=== PATIENT | female | born 1965 | race Caucasian/White ===

== ENCOUNTER 2017-09-16 20:28 | Emergency (ER) | payer OTHER ==
[~2017-09-16] VITALS: Ht 154.9 cm; Wt 67.8 kg
[2017-09-16 20:37] VITALS: BP 143/76
--- NOTE | 2017-09-16 20:37 | NUR ---
PT RETURNED TO LOBBY. URINE COLLECTED.
--- NOTE | 2017-09-16 20:52 | NUR ---
PT TO XRAY VIA W/C
--- NOTE | 2017-09-16 21:09 | NUR ---
AMBULATED TO ER BED 4
[2017-09-16 21:11] LABS: BASOPHILS # (AUTO) 0.3 K/uL (0.00-0.22); EOSINOPHILS # (AUTO) 0.1 K/uL (0-0.4); HEMATOCRIT 40.1 % (36-48); HEMOGLOBIN 13.7 g/dL (12.0-16.0); LYMPHOCYTES # (AUTO) 2.7 K/uL (2.5-16.5); MEAN CORPUSCULAR HEMOGLOBIN 31 pg (27-31); MEAN CORPUSCULAR HGB CONC 34 g/dL (33-37); MEAN CORPUSCULAR VOLUME 92 fL (80-94); MONOCYTES # (AUTO) 0.4 K/uL (0.8-1.0); NEUTROPHILS # (AUTO) 4.4 K/uL (1.8-7.7); PLATELET COUNT (AUTO) 302 K/uL (140-450); RED BLOOD CELL COUNT(AUTO) 4.38 MIL/uL (4.20-5.40); RED CELL DISTRIBUTION WIDTH 12.7 % (11.6-13.7); WHITE BLOOD COUNT (AUTO) 7.9 K/uL (4.8-10.8)
--- NOTE | 2017-09-16 21:15 | NUR ---
52 Y/O F W/C/O EPIGASTRIC PAIN WHICH RADIATES TO BACK. MED HX GALLBLADDER REMOVED.
--- NOTE | 2017-09-16 21:20 | NUR ---
ULTRASOUND AT BEDSIDE.
[2017-09-16 21:21] LABS: ANION GAP 14.2 (8-16); CARBON DIOXIDE 25.5 mmol/L (21-32); CREATININE 0.7 mg/dL (0.6-1.3); POTASSIUM 3.7 mmol/L (3.5-5.1)
[2017-09-16 21:27] LABS: ALBUMIN 3.7 g/dL (3.4-5.0); TOTAL BILIRUBIN 0.4 mg/dL (0.0-1.0)
[2017-09-16 22:34] LABS: APPEARANCE,URINE CLEAR (CLEAR); BILIRUBIN,URINE NEGATIVE (NEGATIVE); BLOOD, URINE 2+ (NEGATIVE); COLOR,URINE YELLOW (YELLOW); LEUKOCYTE ESTERASE ,URINE NEGATIVE (NEGATIVE); NITRITE, URINE NEGATIVE (NEGATIVE); UGLUCOSE NEGATIVE (NEGATIVE)
[2017-09-16 22:54] LABS: RBC,URINE 3-10 (FEW) /HPF (0-5); WBC,URINE 0-5 (RARE) /HPF (0-5)
[2017-09-16 23:13] VITALS: BP 137/77
--- NOTE | 2017-09-16 23:13 | NUR ---
Patient discharged with v/s stable. Written and verbal after care instructions given and explained. Patient alert, oriented and verbalized understanding of instructions. Ambulatory with steady gait. All questions addressed prior to discharge. ID band removed. Patient advised to follow up with PMD. Rx of SIMETHICONE AND MIRALAX given. Patient educated on indication of medication including possible reaction and side effects. Opportunity to ask questions provided and answered.
== END 2017-09-16 23:13 | disposition home or self-care (01) ==
LOC: MED 20:28
DX: K59.00 Constipation, unspecified (principal); K21.9 Gastro-esophageal reflux disease without esophagitis; Z90.49 Acquired absence of other specified parts of digestive tract
CPT/HCPCS: 36415; 74176; 76705; 80053; 81001; 81025; 83690; 85025; 87086; 99285; Q0092

== ENCOUNTER 2018-03-22 16:57 | Emergency (ER) | payer OTHER ==
[~2018-03-22] VITALS: Ht 154.9 cm; Wt 65.8 kg
[2018-03-22 17:32] VITALS: BP 133/86
--- NOTE | 2018-03-22 17:37 | NUR ---
PT WHEEL CHAIR ASSISTED BACK TO THE LOBBY
--- NOTE | 2018-03-22 18:29 | NUR ---
pt asssited to room 11
--- NOTE | 2018-03-22 18:33 | NUR ---
52Y/F BIB SELF C/O LOWER BACK PAIN. PT STATES " SHE WAS CROSSING HER LEFT LEG OVER HER RIGHT LEG TO CLEAN HER FOOT, WHEN SHE MOVE HER FOOT BACK, SHE FELT A SHARP BACK PAIN X 4 DAYS WORSE TODAY WITH DIFFICULTY SITTING; DENIES INJURY. PT TOOK ADVIL AT 0700 THIS MORNING WITH NO RELIEVE OF PAIN. PT DENIES N/V/D; SKIN IS PINK/WARM/DRY; AAOX4 WITH EVEN AND STEADY GAIT; LUNGS CLEAR BL; HR EVEN AND REGULAR; PT DENIES ANY FEVER, CP, SOB, OR COUGH AT THIS TIME; PATIENT STATES PAIN OF 10/10 AT THIS TIME; VSS; PATIENT POSITIONED FOR COMFORT; HOB ELEVATED; BEDRAILS UP X1; BED DOWN. ER MD MADE AWARE OF PT STATUS. HX; HTN RX;" CAN'T REMEMBER"
[2018-03-22] MEDS ORDERED: KETOROLAC 60 MG/2 ML VIAL IM ONE (18:35)
--- NOTE | 2018-03-22 19:20 | NUR ---
RECEIVED REPORT FROM AM NURSE. PT RESTING COMFORTABLY, RR EVEN AND UNLABORED. PT REPORTS DECREASED PAIN. ALL NEEDS MET.
--- NOTE | 2018-03-22 20:00 | NUR ---
CT CALLED, MADE CT AWARE THAT PT REFUSED TO GIVE URINE SAMPLE, PT STATING THAT THERE IS NO CHANCE THAT SHE IS , WILLING TO SIGN CONSENT FOR CT. CT TO MOUNTER AUTOMATIC PT.
--- NOTE | 2018-03-22 20:38 | NUR ---
PT BACK FROM CT
--- NOTE | 2018-03-22 21:30 | NUR ---
PT RESTING COMFORTABLY IN BED, PT REPORTS TOLERABLE 5/10 LOWER BACK PAIN AT THIS TIME, RR EVEN AND UNLABORED, SNACKS PROVIDED, ALL NEEDS MET AT THIS TIME.
--- NOTE | 2018-03-22 23:30 | NUR ---
DR MEHTA AT BEDSIDE TO SPEAK WITH PT.
[2018-03-22] MEDS ORDERED: DEXAMETHASONE 10 MG/ML VIAL IM ONE (23:40)
--- NOTE | 2018-03-22 23:41 | NUR ---
PT RESTING COMFORTABLY IN BED, PT REPORTS 3/10 PAIN, VSS, ALL NEEDS MET AT THIS TIME.
[2018-03-23 00:17] VITALS: BP 137/76
--- NOTE | 2018-03-23 00:18 | NUR ---
Patient discharged with v/s stable. Written and verbal after care instructions given and explained. Patient alert, oriented and verbalized understanding of instructions. Ambulatory with steady gait. All questions addressed prior to discharge. ID band removed. Patient advised to follow up with PMD. Rx of NORCO, FLEXERIL, IBUPROFEN given. Patient educated on indication of medication including possible reaction and side effects. Opportunity to ask questions provided and answered.
== END 2018-03-23 00:18 | disposition home or self-care (01) ==
LOC: MED 16:57
DX: M51.26 Other intervertebral disc displacement, lumbar region (principal); M19.90 Unspecified osteoarthritis, unspecified site; K21.9 Gastro-esophageal reflux disease without esophagitis; I10 Essential (primary) hypertension
CPT/HCPCS: 72131; 96372; 99284; J1100; J1885

== ENCOUNTER 2019-04-22 18:07 | Emergency (ER) | payer OTHER ==
[~2019-04-22] VITALS: Ht 154.9 cm; Wt 67.1 kg
[2019-04-22 18:39] VITALS: BP 144/75
--- NOTE | 2019-04-22 19:43 | NUR ---
PT AMBULATED TO BED
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
[2019-04-22] MEDS ORDERED: SILVER SULFADIAZINE 1% 50 GM JAR TP ONE (20:40)
--- NOTE | 2019-04-22 20:45 | NUR ---
BURN AREA, CLEANSE WITH NSS, APPLIED SILVER CREAM AND COVER WITH DRY DRESSING, PT TOLERATED WELL
--- NOTE | 2019-04-22 21:03 | NUR ---
Patient discharged with v/s stable. Written and verbal after care instructions given and explained. Patient alert, oriented and verbalized understanding of instructions. Ambulatory with steady gait. All questions addressed prior to discharge. ID band removed. Patient advised to follow up with PMD. Rx of BACTRIM DS, BACITRACXIN OINTMENT given. Patient educated on indication of medication including possible reaction and side effects. Opportunity to ask questions provided and answered.
[2019-04-22 21:04] VITALS: BP 169/72
== END 2019-04-22 21:03 | disposition home or self-care (01) ==
LOC: MED 18:07
DX: T22.211A Burn of second degree of right forearm, initial encounter (principal); K21.9 Gastro-esophageal reflux disease without esophagitis; I10 Essential (primary) hypertension; X12.XXXA Contact with other hot fluids, initial encounter; Y93.G3 Activity, cooking and baking; Y92.89 Other specified places as the place of occurrence of the external cause; Y99.8 Other external cause status
CPT/HCPCS: 16020; 99284

== ENCOUNTER 2019-04-27 18:13 | Emergency (ER) | payer OTHER ==
[~2019-04-27] VITALS: Ht 154.9 cm; Wt 67.6 kg
[2019-04-27 18:33] VITALS: BP 109/61
--- NOTE | 2019-04-27 19:12 | NUR ---
PATIENT AMBULATED TO ER BED 8
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
[2019-04-27] MEDS ORDERED: BACITRACIN OINT 500 UNITS/GM PKT TP ONE (21:15)
--- NOTE | 2019-04-27 21:35 | NUR ---
NEOSPORIN APPLIED TO BURN SITE AND COVERED WITH GAUZE.
--- NOTE | 2019-04-27 21:38 | NUR ---
CONSENT FORM SIGNED FOR TDAP VACCINE. REVIEWED RISKS/BENEFITS. PT VERBALIZES UNDERSTANDING.
[2019-04-27] MEDS ORDERED: NEOMYCIN/POLYMYXIN/BACITRACIN 0.9 GM/1 PKT TP ONE (21:44)
[2019-04-27 21:45] VITALS: BP 113/72
--- NOTE | 2019-04-27 21:45 | NUR ---
Patient discharged with v/s stable. Written and verbal after care instructions given and explained. Patient verbalized understanding. Ambulatory with steady gait. All questions addressed prior to discharge. Advised to follow up with PMD.
== END 2019-04-27 21:45 | disposition home or self-care (01) ==
LOC: MED 18:13
DX: T23.071A Burn of unspecified degree of right wrist, initial encounter (principal); T23.021A Burn of unspecified degree of single right finger (nail) except thumb, initial encounter; K21.9 Gastro-esophageal reflux disease without esophagitis; I10 Essential (primary) hypertension; X11.8XXA Contact with other hot tap-water, initial encounter; Y93.89 Activity, other specified; Y92.89 Other specified places as the place of occurrence of the external cause; Y99.8 Other external cause status
CPT/HCPCS: 16020; 90471; 90715; 99284

== ENCOUNTER 2019-08-30 16:05 | Emergency (ER) | payer OTHER ==
[~2019-08-30] VITALS: Ht 154.9 cm; Wt 65.3 kg
[2019-08-30 16:12] VITALS: BP 147/76
[2019-08-30] MEDS ORDERED: DEXAMETHASONE 10 MG/ML VIAL IM ONE (16:20)
[2019-08-30] MEDS ORDERED: KETOROLAC 30 MG/ML VIAL IM ONE (16:20)
--- NOTE | 2019-08-30 16:20 | NUR ---
54 Y/O F C/O LEFT WRIST PAIN X 2 MONTHS. PT DENIES INJURY, STATES THE PAIN CAME ON SUDDENLY AND HAS LASTED FOR 2 MONTHS. PT HAS PAIN WITH MOVEMENT OF THUMB, HOLDING OBJECTS 8/10. PAIN DOES NOT RADIATE FROM WRIST TO ARM. PT IS WEARING A SPLINT THAT SHE STATES HELPS WITH THE PAIN RELIEF. PT POSITIONED FOR COMFORT, SIDE RAIL X1 IN PLACE. NKA.
--- NOTE | 2019-08-30 16:21 | NUR ---
PATIENT AMBULATED TO BED 3
[2019-08-30 17:43] VITALS: BP 136/81
--- NOTE | 2019-08-30 17:44 | NUR ---
Patient discharged with v/s stable. Written and verbal after care instructions given and explained. Patient alert, oriented and verbalized understanding of instructions. Ambulatory with steady gait. All questions addressed prior to discharge. ID band removed. Patient advised to follow up with PMD. Rx of NORCO/NAPROXEN given. Patient educated on indication of medication including possible reaction and side effects. Opportunity to ask questions provided and answered.
== END 2019-08-30 18:10 | disposition home or self-care (01) ==
LOC: MED 16:05
DX: M65.4 Radial styloid tenosynovitis [de Quervain] (principal); K21.9 Gastro-esophageal reflux disease without esophagitis; I10 Essential (primary) hypertension; F17.210 Nicotine dependence, cigarettes, uncomplicated; Z90.49 Acquired absence of other specified parts of digestive tract
CPT/HCPCS: 96372; 99283; J1100; J1885

== ENCOUNTER 2020-12-13 14:25 | Emergency (ER) | payer OTHER ==
[~2020-12-13] VITALS: Ht 154.9 cm; Wt 66.2 kg
[2020-12-13 14:33] VITALS: BP 165/73
--- NOTE | 2020-12-13 15:11 | NUR ---
PATIENT PRESENTS TO ED WITH PALPITATION . PT STATES SYMPTOM STARTED LAST NIGHT @ 2AM . DENIES N/V/D; SKIN IS PINK/WARM/DRY; AAOX4 WITH EVEN AND STEADY GAIT; LUNGS CLEAR BL; HR EVEN AND REGULAR; PT DENIES ANY FEVER, CP, SOB, OR COUGH AT THIS TIME; PATIENT STATES PAIN OF 0/10 AT THIS TIME; VSS; PATIENT POSITIONED FOR COMFORT; HOB ELEVATED; BEDRAILS UP X2; BED DOWN. ER MD MADE AWARE OF PT STATUS. PMH: HTN, RX: LISINOOPRIL, CHLORTHALIALONE, NAPROXEN, ALDRONATE, AMEPRAZOLE, VITAMIN D, LIPITOR. NKA
[2020-12-13 15:13] LABS: BASOPHILS # (AUTO) 0.1 K/uL (0.00-0.22); BASOPHILS % (AUTO) 0.7 % (0.0-2.0); EOSINOPHILS % (AUTO) 0.3 % (0.0-4.0); HEMATOCRIT 37.6 % (36-48); HEMOGLOBIN 13.2 g/dL (12.0-16.0); LYMPHOCYTES # (AUTO) 2.1 K/uL (2.5-16.5); LYMPHOCYTES % (AUTO) 21.1 % (20.5-51.1); MEAN CORPUSCULAR HEMOGLOBIN 31 pg (27-31); MEAN CORPUSCULAR HGB CONC 35 g/dL (33-37); MEAN CORPUSCULAR VOLUME 89.5 fL (80-94); MONOCYTES # (AUTO) 0.7 K/uL (0.8-1.0); MONOCYTES % (AUTO) 6.9 % (1.7-9.3); NEUTROPHILS # (AUTO) 7.2 K/uL (1.8-7.7); PLATELET COUNT (AUTO) 187 K/uL (140-450); RED CELL DISTRIBUTION WIDTH 13.5 % (11.6-13.7); WHITE BLOOD COUNT (AUTO) 10.1 K/uL (4.8-10.8)
[2020-12-13 15:30] LABS: ALBUMIN 3.4 g/dL (3.4-5.0); ANION GAP 14.3 (8-16); CARBON DIOXIDE 25.9 mmol/L (21-32); CREATININE 1.2 mg/dL (0.6-1.3); POTASSIUM 3.2 mmol/L (3.5-5.1); TOTAL BILIRUBIN 0.8 mg/dL (0.0-1.0)
[2020-12-13] MEDS ORDERED: NACL 0.9% 1,000 ML IV ONE (16:00)
[2020-12-13] MEDS ORDERED: metFORMIN 500 MG TAB PO SCH (17:20)
[2020-12-13] MEDS ORDERED: METF500T PO (17:27)
--- NOTE | 2020-12-13 17:48 | NUR ---
Patient discharged with v/s stable. Written and verbal after care instructions given and explained. Patient alert, oriented and verbalized understanding of instructions. Ambulatory with steady gait. All questions addressed prior to discharge. ID band removed. Patient advised to follow up with PMD. Rx of METFORMIN given. Patient educated on indication of medication including possible reaction and side effects. Opportunity to ask questions provided and answered.
[2020-12-13 17:51] VITALS: BP 140/57
== END 2020-12-13 17:48 | disposition home or self-care (01) ==
LOC: MED 14:25
DX: E11.9 Type 2 diabetes mellitus without complications (principal); F41.9 Anxiety disorder, unspecified; I11.9 Hypertensive heart disease without heart failure; E78.00 Pure hypercholesterolemia, unspecified; Z79.84 Long term (current) use of oral hypoglycemic drugs
CPT/HCPCS: 36415; 80053; 81002; 85025; 93005; 96360; 99284; J7030

== ENCOUNTER 2022-05-26 18:59 | Emergency (ER) | payer OTHER ==
[~2022-05-26] VITALS: Ht 154.9 cm; Wt 65.3 kg
[~2022-05-26 18:59] MED LIST: METF-346 PO
[2022-05-26 19:32] VITALS: BP 214/109
--- NOTE | 2022-05-26 19:35 | NUR ---
Chandni garner in [facility] - 05/26/22 at 1940 by [facility] PT TO .
--- NOTE | 2022-05-26 19:39 | NUR ---
Chandni garner in [facility] - 05/26/22 at 1940 by JERAMIE PATIENT RQ CAMILLA SANCHEZ
[2022-05-26 20:19] VITALS: BP 137/62
--- NOTE | 2022-05-26 20:23 | NUR ---
PT TO LOBBY.
[2022-05-26 22:26] LABS: APPEARANCE,URINE CLEAR (CLEAR); BILIRUBIN,URINE NEGATIVE (NEGATIVE); BLOOD, URINE 1+ (NEGATIVE); COLOR,URINE YELLOW (YELLOW); LEUKOCYTE ESTERASE ,URINE NEGATIVE (NEGATIVE); NITRITE, URINE NEGATIVE (NEGATIVE); UGLUCOSE NEGATIVE (NEGATIVE)
[2022-05-26 22:37] LABS: BASOPHILS % (AUTO) 1.3 % (0.0-2.0); EOSINOPHILS % (AUTO) 0.7 % (0.0-4.0); HEMATOCRIT 33.5 % (36-48); HEMOGLOBIN 11.8 g/dL (12.0-16.0); LYMPHOCYTES # (AUTO) 1.6 K/uL (2.5-16.5); LYMPHOCYTES % (AUTO) 55.9 % (20.5-51.1); MEAN CORPUSCULAR HEMOGLOBIN 32 pg (27-31); MEAN CORPUSCULAR HGB CONC 35 g/dL (33-37); MEAN CORPUSCULAR VOLUME 91.8 fL (80-94); MONOCYTES # (AUTO) 0.1 K/uL (0.8-1.0); MONOCYTES % (AUTO) 4.1 % (1.7-9.3); NEUTROPHILS # (AUTO) 1.1 K/uL (1.8-7.7); PLATELET COUNT (AUTO) 348 K/uL (140-450); RED BLOOD CELL COUNT(AUTO) 3.65 MIL/uL (4.20-5.40); RED CELL DISTRIBUTION WIDTH 15.2 % (11.6-13.7); WHITE BLOOD COUNT (AUTO) 2.9 K/uL (4.8-10.8)
[2022-05-26 22:38] LABS: RBC,URINE 0-5 /HPF (0-5); WBC,URINE 0-5 /HPF (0-5)
[2022-05-26 22:57] LABS: ALBUMIN 3.9 g/dL (3.4-5.0); ANION GAP 17.6 (8-16); CARBON DIOXIDE 24.5 mmol/L (21-32); CREATININE 0.8 mg/dL (0.6-1.3); POTASSIUM 3.1 mmol/L (3.5-5.1); TOTAL BILIRUBIN 1.3 mg/dL (0.0-1.0)
--- NOTE | 2022-05-26 23:01 | NUR ---
MARLEE DIMAS ASSESSING IN [facility]
[2022-05-26] MEDS ORDERED: NACL 0.9% 1,000 ML IV ONE (23:05)
[2022-05-26] MEDS ORDERED: MORPHINE SULFATE 4 MG/ML SYR IVP ONE (23:05)
[2022-05-26] MEDS ORDERED: cefTRIAXone 1,000 MG VIAL ONE (23:56)
[2022-05-27] MEDS ORDERED: ACET-8386 PO (06:45)
[2022-05-27] MEDS ORDERED: FAMO-92 PO (06:45)
[2022-05-27] MEDS ORDERED: AMOX1TAB8 PO (06:45)
[2022-05-27] MEDS ORDERED: ONDA-188 PO (06:45)
[2022-05-27] MEDS ORDERED: SIME125T38 PO (06:45)
[2022-05-27 07:06] VITALS: BP 112/44
== END 2022-05-27 07:05 | disposition home or self-care (01) ==
LOC: MED 18:59
DX: K52.9 Noninfective gastroenteritis and colitis, unspecified (principal); E11.9 Type 2 diabetes mellitus without complications; I10 Essential (primary) hypertension; Z85.3 Personal history of malignant neoplasm of breast; Z98.890 Other specified postprocedural states; Z79.84 Long term (current) use of oral hypoglycemic drugs; Z79.899 Other long term (current) drug therapy
CPT/HCPCS: 36415; 71250; 74176; 80053; 81001; 81025; 83605; 83690; 85025; 87086; 96365; 96366; 96375; 99284; J0696; J2270; J7030

== ENCOUNTER 2022-06-17 11:57 | Inpatient (IN) | payer OTHER ==
[~2022-06-17] VITALS: Ht 154.9 cm; Wt 67.6 kg
[~2022-06-17 11:57] MED LIST changes: +ACET-8386 PO; +AMOX1TAB8 PO; +FAMO-92 PO; +ONDA-188 PO; +SIME125T38 PO
[2022-06-17 12:10] VITALS: BP 109/61
[2022-06-17] MEDS ORDERED: NACL 0.9% 1,000 ML IV SCH (12:45)
--- NOTE | 2022-06-17 12:51 | NUR ---
Pt moved to bed 01 via [facility].
--- NOTE | 2022-06-17 13:00 | NUR ---
56 y/o F BIB self from home c/o low back pain, dizziness, lightheadedness, sore throat, body aches x 2-3 days. Patient A&Ox4, ambulatory, states referred by OFFICE PROFESSIONAL for abnormal labs "WBC 1.7." Patient reports last chemotherapy treatment on 06/11/22; reports next scheduled treatment tomorrow, however, OFFICE PROFESSIONAL notified pt of abnormal labs and advised ER evaluation. Pt states 2/10, pulsating/constant, non-radiating pain. Denies fever, chills, dysuria, SOB, cold-like symptoms, fever, headache, chest pain, abdominal pain. Pt placed onto monitoring tech and N95 provided. Bed locked in lowest position, side rails x 1. PMH: breast cancer 2020, double mastectomy lymph nodes removed on left) DM, HTN, HLD, osteoporosis Meds: metformin, lisinopril, chlorthalidone, vitamin D, atorvastatin, alendronate NKDA
--- NOTE | 2022-06-17 13:00 | NUR ---
Note undone in EDM - 06/17/22 at 1432 by [facility] 56 y/o F BIB self from home c/o low back pain, dizziness, lightheadedness, sore throat, body aches x 2-3 days. Patient A&Ox4, ambulatory, states referred by ADMINISTRATIVE SERVICES SPECIALIST for abnormal labs "WBC 1.7." Patient reports last chemotherapy treatment on 06/11/22; reports next scheduled treatment tomorrow, however, ADMINISTRATIVE SERVICES SPECIALIST notified pt of abnormal labs and advised ER evaluation. Pt states 2/10, pulsating/constant, non-radiating pain. Denies fever, chills, dysuria, SOB, cold-like symptoms, fever, headache, chest pain, abdominal pain. Pt placed onto ekg monitor tech and N95 provided. Bed locked in lowest position, side rails x 1. PMH: breast cancer 2020, double mastectomy lymph nodes removed on left) DM, HTN, HLD, osteoporosis Meds: metformin NKDA
--- NOTE | 2022-06-17 13:10 | NUR ---
Lab at bedside
--- NOTE | 2022-06-17 13:36 | NUR ---
UMA SENT TO LAB
[2022-06-17 13:45] LABS: ALBUMIN 3.4 g/dL (3.4-5.0); ANION GAP 15.5 (8-16); CARBON DIOXIDE 24.7 mmol/L (21-32); CREATININE 0.8 mg/dL (0.6-1.3); HEMATOCRIT 30.2 % (36-48); HEMOGLOBIN 10.5 g/dL (12.0-16.0); MEAN CORPUSCULAR HEMOGLOBIN 33 pg (27-31); MEAN CORPUSCULAR HGB CONC 35 g/dL (33-37); MEAN CORPUSCULAR VOLUME 93.7 fL (80-94); PLATELET COUNT (AUTO) 325 K/uL (140-450); POTASSIUM 3.2 mmol/L (3.5-5.1); RED BLOOD CELL COUNT(AUTO) 3.23 MIL/uL (4.20-5.40); TOTAL BILIRUBIN 0.6 mg/dL (0.0-1.0); WHITE BLOOD COUNT (AUTO) 2.8 K/uL (4.8-10.8)
[2022-06-17 13:49] LABS: PROTHROMBIN TIME 10.2 secs (10.8-13.4)
[2022-06-17 14:32] LABS: BASOPHILS % (MANUAL) 1 % (0-2); EOSINOPHILS % (MANUAL) 1 % (0-4); MONOCYTES % (MANUAL) 14 % (5-12); MYELOCYTES % 2 % (0-0)
[2022-06-17] MEDS ORDERED: ATOR40TA PO (14:32)
[2022-06-17] MEDS ORDERED: CHOL500014 PO (14:32)
[2022-06-17] MEDS ORDERED: FOS70 PO (14:32)
[2022-06-17] MEDS ORDERED: LISI-487 PO (14:32)
[2022-06-17] MEDS ORDERED: CHLO25TA33 PO (14:32)
--- NOTE | 2022-06-17 14:35 | NUR ---
Patient resting in low-fowlers in position of comfort. screening representative in place with VSS. Pt states low back pain remains 10/03. Call light at bedside.
[2022-06-17 14:38] LABS: LYMPHOCYTES % (MANUAL) 46 % (20-46)
[2022-06-17] MEDS ORDERED: OSELTAMIVIR PHOSPHATE 75 MG CAP PO ONE (14:50)
[2022-06-17] MEDS ORDERED: INSULIN LISPRO SLIDING SCALE 100 UNITS/ML VIAL SUBQ PRN (14:55)
[2022-06-17] MEDS ORDERED: DEXTROSE 50% 50 ML SYR IVP PRN (14:55)
[2022-06-17] MEDS ORDERED: ONDANSETRON 4 MG/2 ML VIAL IVP PRN (14:55)
--- NOTE | 2022-06-17 14:59 | NUR ---
Dr. Barraza with page back, advised of critical lab value + FLU A.
--- NOTE | 2022-06-17 15:06 | NUR ---
Dr. Barraza at bedside
[2022-06-17] MEDS ORDERED: FILGRASTIM-TBO 300 MCG/0.5 ML SYRINGE SUBQ SCH (15:30)
[2022-06-17] MEDS: NACL 0.9% 1,000 ML IV SCH (15:46)
[2022-06-17] MEDS: BLOOD GLUCOSE MONITORING 1 DEV DEV FS SCH ×2 (17:00→20:53)
--- NOTE | 2022-06-17 17:55 | NUR ---
Pt transferred to Tele 118 via BED WITH ELIDA RENDON.
--- NOTE | 2022-06-17 18:05 | NUR ---
Patient will be admitted to care of Dr. Barraza. Admited to Telemetry. Will go to room 118A. Belongings list completed. Report to ELIDA Jones.
--- NOTE | 2022-06-17 18:40 | NUR ---
RECEIVED PT VIA GODWAINEY FROM ED ACCOMPANIED BY ELIDA RENDON PT A/OX4 AMBULATORY ABLE TO MAKE NEEDS KNOWN PLACED ON TELEMETRY SR NOTED VS 98.2 112/50 98% ON ROOM AIR HR 78 RR 17 NO ACUTE DISTRESS NOTED ORIENTED TO ROOM IV FLUIDS PLACED ON PUMP TO RUN AT 75ML/HR ORDERED MRSA SWAB COMPLETED PLACED NEUTROPENIC PRECAUTIONS SIGN AT DOOR NO DISTRESS NOTED WILL ENDORSE CARE TO ONCOMING RN FOR ADMISSION Addendum: 06/17/22 at 1846 by Agency Nurse 21, RN RN PT WBC 2.8 NO NEUTROPENIC PRECATIONS PT PLACED ON CONTACT PRECAUTIONS FOR INFLUENZA A WILL ENDORSE TO ONCOMING RN FOR ADMISSION ASSESSMENT
[2022-06-17 19:30] VITALS: BP 112/50
--- NOTE | 2022-06-17 19:30 | NUR ---
RECEIVED REPORT FROM DAY SHIFT NURSE MICHELLE FOR CONTINUITY OF CARE. PATIENT IS A&O X4. PATIENT IS ON ROOM AIR, BREATHING IS NORMAL WITH SYMMETRICAL RISE AND FALL OF CHEST. PATIENT'S IV IS 20G IN THE RIGHT HAND, RUNNING NS AT 75. PATIENT IS SITTING UP IN BED WATCHING TV. WILL CONTINUE TO OBSERVE PATIENT.
[2022-06-17] MEDS: OSELTAMIVIR PHOSPHATE 75 MG CAP PO SCH (20:46)
--- NOTE | 2022-06-17 21:00 | NUR ---
ADMINISTERED 2100 MEDICATION TO PATIENT; MEDICATION ADMINISTERED SUCCESSFULLY, PATIENT WAS ABLE TO SWALLOW WITHOUT ANY ISSUES. BS WAS OBTAINED, BS WAS 118, NO INSULIN COVERAGE NEEDED. PATIENT'S BREATHING IS NORMAL WITH SYMMETRICAL RISE AND FALL OF CHEST. IV IS RUNNING NS AT 75. PATIENT IS SITTING UP IN BED WATCHING TV. WILL CONTINUE TO OBSERVE PATIENT.
[2022-06-17] MEDS: ACETAMINOPHEN 325 MG TAB PO PRN (22:09)
--- NOTE | 2022-06-17 22:15 | NUR ---
PATIENT COMPLAINED OF PAIN IN LOWER BACK. CHECKED PATIENT'S CHART, TYLENOL WAS APPROPRIATE TO ADMINISTER. ADMINISTERED TYLENOL TO PATIENT. MEDICATION ADMINISTERED SUCCESSFULLY, PATIENT WAS ABLE TO SWALLOW WITHOUT ANY DIFFICULTY. WILL REASSESS PATIENT'S PAIN IN ONE HOUR.
--- NOTE | 2022-06-17 23:15 | NUR ---
LOOKED IN ON PATIENT TO REASSESS PAIN. PATIENT WAS SLEEPING, LYING ON HER RIGHT SIDE. BREATHING WAS NORMAL WITH SYMMETRICAL RISE AND FALL OF CHEST. MEDICATION WAS SUCCESSFUL IN PROVIDING COMFORT TO PATIENT. WILL CONTINUE TO OBSERVE PATIENT.
[2022-06-18] VITALS: BP 105/45
--- NOTE | 2022-06-18 01:00 | NUR ---
LOOKED IN ON PATIENT. PATIENT WAS SLEEPING, LYING ON HER RIGHT SIDE. BREATHING WAS NORMAL WITH SYMMETRICAL RISE AND FALL OF CHEST. IV WAS STILL RUNNING NS AT 75. BED IS IN LOWEST POSITION WITH WHEELS LOCKED AND CALL LIGHT IN PLACE. WILL CONTINUE TO OBSERVE PATIENT.
--- NOTE | 2022-06-18 03:02 | NUR ---
LOOKED IN ON PATIENT. PATIENT WAS SLEEPING; PATIENT ROLLED OVER AFTER I OPENED THE DOOR, ROTATING FROM LYING ON HER LEFT SIDE TO LYING ON HER RIGHT SIDE, BUT STILL ASLEEP. IV WAS RUNNING NS AT 75. BREATHING WAS NORMAL WITH SYMMETRICAL RISE AND FALL OF CHEST. WILL CONTINUE TO OBSERVE PATIENT.
[2022-06-18 04:00] VITALS: BP 101/43
--- NOTE | 2022-06-18 04:00 | NUR ---
OBTAINED PATIENT'S 0400 VITALS. VITALS WERE: BP 101/43, HR 78, O2 98, RR 17, TEMP 97.0. WILL CONTINUE TO OBSERVE PATIENT.
[2022-06-18] MEDS: NACL 0.9% 1,000 ML IV SCH ×2 (04:15→05:17)
--- NOTE | 2022-06-18 05:18 | NUR ---
WENT INTO PATIENT'S ROOM AND HUNG NEW IV BAG OF NS. NS IS RUNNING AT 75. PATIENT WAS SLEEPING, BUT AWAKENED WHEN I ENTERED THE ROOM. INFORMED PATIENT I WAS HANGING A NEW IV BAG, PATIENT STATED OKAY. PATIENT WAS GOING TO GO BACK TO SLEEP. BREATHING WAS NORMAL WITH SYMMETRICAL RISE AND FALL OF CHEST. WILL CONTINUE TO OBSERVE PATIENT.
[2022-06-18] MEDS: BLOOD GLUCOSE MONITORING 1 DEV DEV FS SCH ×2 (07:02→12:24)
--- NOTE | 2022-06-18 07:02 | NUR ---
BS WAS OBTAINED. BS WAS 111, NO INSULIN NEEDED. PATIENT WAS AWAKE, BREATHING WAS NORMAL WITH SYMMETRICAL RISE AND FALL OF CHEST. WILL ENDORSE CARE TO DAY SHIFT NURSE.
--- NOTE | 2022-06-18 07:30 | NUR ---
ENDORSED TO DAY SHIFT ANTOLIN FOR CONTINUITY OF CARE. PATIENT IS STABLE.
--- NOTE | 2022-06-18 07:31 | NUR ---
RECEIVED PT FROM REPORTS ANALYSIS MANAGER FOR CONTINUITY OF CARE.
[2022-06-18 08:00] VITALS: BP 112/55
--- NOTE | 2022-06-18 08:00 | NUR ---
ENDORSED PT TO ELIDA ESCALANTE FOR CONTINUITY OF CARE. LEFT MESSAGE TO DR GONZALEZ REGARDING POTASSIUM 3.[address] AND NO ORDER IN PLACE. WAITING FOR RESPONSE.
--- NOTE | 2022-06-18 08:01 | NUR ---
RECEIVED REPORT FROM AM SHIFT NURSE D/T CHANGE OF ASSIGNMENTS. PATIENT LYING DOWN IN BED, AAOX4, SKIN INTACT, IV SITE INTACT, PATENT, AND INFUSING IVF PER MD ORDERS. REVIEWED PLAN OF CARE WITH PATIENT. SAFETY MEASURES IN PLACE, CALL LIGHT WITHIN REACH. WILL CONTINUE TO MONITOR.
[2022-06-18] MEDS ORDERED: POTASSIUM CHLORIDE 10 MEQ TABER PO SCH (09:00)
[2022-06-18] MEDS ORDERED: PANTOPRAZOLE 40 MG TABEC PO SCH (09:00)
[2022-06-18] MEDS ORDERED: ENOXAPARIN 40 MG/0.4 ML SYR SUBQ SCH (09:00)
[2022-06-18] MEDS ORDERED: FILGRASTIM-TBO 300 MCG/0.5 ML SYRINGE SUBQ SCH (09:00)
[2022-06-18] MEDS ORDERED: lisinopriL 20 MG TAB PO SCH (09:00)
[2022-06-18] MEDS: OSELTAMIVIR PHOSPHATE 75 MG CAP PO SCH (09:28)
--- NOTE | 2022-06-18 09:30 | NUR ---
SCHEDULED MEDICATIONS DUE GIVEN. WILL CONTINUE TO MONITOR.
[2022-06-18 10:18] LABS: HEMATOCRIT 28.1 % (36-48); HEMOGLOBIN 9.6 g/dL (12.0-16.0); MEAN CORPUSCULAR HEMOGLOBIN 33 pg (27-31); MEAN CORPUSCULAR HGB CONC 34 g/dL (33-37); MEAN CORPUSCULAR VOLUME 95.4 fL (80-94); PLATELET COUNT (AUTO) 313 K/uL (140-450); RED BLOOD CELL COUNT(AUTO) 2.94 MIL/uL (4.20-5.40); RED CELL DISTRIBUTION WIDTH 15.2 % (11.6-13.7); WHITE BLOOD COUNT (AUTO) 8.7 K/uL (4.8-10.8)
[2022-06-18 10:45] LABS: ANION GAP 9.4 (8-16); CARBON DIOXIDE 26.6 mmol/L (21-32); CREATININE 0.8 mg/dL (0.6-1.3); MAGNESIUM 1.6 mg/dL (1.8-2.4); TOTAL BILIRUBIN 0.5 mg/dL (0.0-1.0)
[2022-06-18 12:00] VITALS: BP 110/53
[2022-06-18 12:00] LABS: BASOPHILS % (MANUAL) 1 % (0-2); EOSINOPHILS % (MANUAL) 1 % (0-4); LYMPHOCYTES % (MANUAL) 20 % (20-46); MONOCYTES % (MANUAL) 10 % (5-12)
[2022-06-18] MEDS: ACETAMINOPHEN 325 MG TAB PO PRN (12:42)
--- NOTE | 2022-06-18 12:43 | NUR ---
COMPLAINS OF MILD PAIN, TYLENOL GIVEN AT THIS TIME. WILL CONTINUE
--- NOTE | 2022-06-18 13:40 | NUR ---
PATIENT HAS BEEN SCREENED AND CATEGORIZED LOW NUTRITION RISK. PATIENT WILL BE SEEN WITHIN 7 DAYS OF ADMISSION. 06/24/[address]DA V[address]LE[address]
[2022-06-18] MEDS ORDERED: TAM75 PO (14:15)
--- NOTE | 2022-06-18 14:51 | NUR ---
DC PLANNING PATIENT CURRENTLY IN ISOLATION, OUTREACHED TO HER NUMBER ON FILE HOWEVER,PT'S PHONE IS OFF AND WENT STRAIGHT TO , THEREFORE SW OUTREACHED TO PTS DAUGHTER TO GATHER COLLATERAL INFORMATION. DARRELL REPORTS PT RESIDES IN A SINGLE STORY HOME WITH HER AT THE ADDRESS LISTED ON FILE.DARRELL REPORTS SHE IS PT EMERGENCY CONTACT AND DECLINED TO ADD ADDITIONAL EMERGENCY CONTACT. PATIENT IS REPORTED TO MEET WITH PCP, REGULARLY, LAST VISIT; 2 WEEKS AGO. PT IS REPORTED TO MEET WITH ONCOLOGIST 1X MONTH, LAST VISIT; 06/17/22. DARRELL REPORTS PT RECEIVES CHEMOTHERAPY 1X EVERY THREE WEEKS AND RECENTLY BEGAN RECEIVING A NEW TX OF 1XWEEKLY HOWEVER STRUGGLED TO RECALL NAME OF TX.SW SPOKE TO DARRELL ON IMPORTANCE OF FOLLOW CARE, DARRELL RECEPTIVE. SW OFFERED TO MAKE FOLLOW UP APPT ONCE PT DC'D, HOWEVER, DARRELL REPORTS SHE WILL MAKE APPT FOR PT.PT IS REPORTED TO BE MEDICATION COMPLIANT AND DENIES BARRIERS IN ACCESS TO MEDICATIONS NEEDED. PATIENT RECEIVES MEDICATION FROM [facility] [address] IN [place], WHEN NEEDED. PT IS REPORTED TO BE BEING INDEPENDENT IN ALL ACTIVITIES AND DENIES USE OF DME. PT COMPLETES ALL ADL'S INDEPENDENTLY. NO MENTAL HEALTH/SUBSTANCE USE HX REPORTED. PATIENT HAS HX OF DIABETES AND REPORTS THAT DIABETES IS WELL MANAGED, PT REPORTED TO BE NUTRITION COMPLIANT. DARRELL DENIES HX OF HH, DIALYSIS TX, HOSPICE SERVICES, AND SNF PLACEMENT. DARRELL REPORTS DC PLAN IS TO RETURN HOME, WITH DAUGHTER PROVIDING TRANSPORTATION WHEN CLIENT IS STABLE. SW INQUIRED ON RESOURCES NEEDED, DARRELL DENIED AT THIS TIME.
--- NOTE | 2022-06-18 15:00 | NUR ---
PATIENT SITTING IN BED TALKING ON THE PHONE. NO DISTRESS NOTED. WILL CONTINUE TO MONITOR.
--- NOTE | 2022-06-18 16:15 | NUR ---
DISCHARGE INSTRUCTIONS PROVIDED TO PATIENT IN PREFERRED LANGUAGE OF UKRAINIAN. INSTRUCTIONS ON NEW/CHANGED MEDICATIONS, DIET REGIMEN, FOLLOW-UP VISIT PCP AND ONCOLOGIST. ANSWERED ALL OF PATIENT'S QUESTIONS REGARDING DISCHARGE. IV SITE REMOVED WITH MINIMAL BLOOD AND LUMEN COMPLETELY INTACT. ESCORTED PATIENT DOWN TO LOBBY VIA STEADY AMBULATION. PATIENT DISCHARGED AT THIS TIME TO HOME WITH FAMILY MEMBER PRIVATE VEHICLE.
== END 2022-06-18 16:15 | disposition home or self-care (01) | DRG 660 ==
LOC: MED 11:57 → MTU 15:01
PROVIDERS: ADMIT Internal Medicine; ATTEND Internal Medicine
DX: D70.1 Agranulocytosis secondary to cancer chemotherapy (principal); E87.1 Hypo-osmolality and hyponatremia; J10.1 Influenza due to other identified influenza virus with other respiratory manifestations; E87.6 Hypokalemia; Z20.822 Contact with and (suspected) exposure to COVID-19; I10 Essential (primary) hypertension; E11.9 Type 2 diabetes mellitus without complications; E78.00 Pure hypercholesterolemia, unspecified; E78.5 Hyperlipidemia, unspecified; T45.1X5A Adverse effect of antineoplastic and immunosuppressive drugs, initial encounter; Z85.3 Personal history of malignant neoplasm of breast; Z87.310 Personal history of (healed) osteoporosis fracture; Z90.49 Acquired absence of other specified parts of digestive tract; Z87.891 Personal history of nicotine dependence; Y92.89 Other specified places as the place of occurrence of the external cause
CPT/HCPCS: 36415; 71045; 80053; 82948; 83605; 83735; 83880; 84484; 85025; 85610; 85730; 87040; 87081; 93005; 96360; 99285; J1447; J1650; J1815; J7030; Q0092

== ENCOUNTER 2022-10-29 13:14 | Emergency (ER) | payer OTHER ==
[~2022-10-29] VITALS: Ht 157.5 cm; Wt 65.8 kg
[~2022-10-29 13:14] MED LIST changes: -ACET-8386 PO; +ACET-8905 PO; -AMOX1TAB8 PO; +ATOR40TA PO; +CHLO25TA33 PO; +CHOL500014 PO; +FOS70 PO; +LISI-487 PO; +TAM75 PO
[2022-10-29 13:29] VITALS: BP 117/66
[2022-10-29] MEDS ORDERED: AMOX1TAB8 PO (16:45)
[2022-10-29] MEDS ORDERED: ROBAC PO (16:45)
--- NOTE | 2022-10-29 17:11 | NUR ---
GIVEN ACI RX TO [facility], QUESTIONS ANSWERED STEADY GAIT HOME.
== END 2022-10-29 17:11 | disposition home or self-care (01) ==
LOC: MED 13:14
DX: J40 Bronchitis, not specified as acute or chronic (principal); E11.9 Type 2 diabetes mellitus without complications; I10 Essential (primary) hypertension; E78.00 Pure hypercholesterolemia, unspecified; Z98.890 Other specified postprocedural states; Z85.3 Personal history of malignant neoplasm of breast; Z79.899 Other long term (current) drug therapy; Z79.2 Long term (current) use of antibiotics; Z79.891 Long term (current) use of opiate analgesic
CPT/HCPCS: 71045; 99283